=== PATIENT | female | born 1955 | race Caucasian/White ===

== ENCOUNTER → 2018-05-08 | Outpatient (CLI) | payer OTHER ==
[~2018-05-08] MED LIST: REGADENOSON 0.4 MG/5 ML SYRINGE ONE
== END | disposition home or self-care (01) ==
LOC: CFH 07:53
PROVIDERS: ATTEND Nurse Practitioner Family
DX: R07.9 Chest pain, unspecified (principal); R00.2 Palpitations
CPT/HCPCS: 78452; 93017; A9502; J2785

== ENCOUNTER → 2019-10-21 | Outpatient (CLI) | payer OTHER | END | disposition home or self-care (01) | LOC: CFH 12:04 | PROVIDERS: ATTEND Physician Assistant Medical | DX: I10 Essential (primary) hypertension (principal); R07.9 Chest pain, unspecified | CPT/HCPCS: 78452; 93017; 93306; A9502 ==